=== PATIENT | male | born 2000 | race Caucasian/White ===

== ENCOUNTER 2022-11-05 22:09 | Emergency (ER) | payer OTHER ==
[~2022-11-05] VITALS: Ht 167.6 cm; Wt 90.0 kg
[2022-11-05 22:11] VITALS: BP 141/83
== END 2022-11-06 00:57 | disposition home or self-care (01) ==
LOC: M ED 22:09
DX: S09.90XA Unspecified injury of head, initial encounter (principal); W22.8XXA Striking against or struck by other objects, initial encounter; Y99.1 Military activity; F17.200 Nicotine dependence, unspecified, uncomplicated